=== PATIENT | male | born 1950 | race Two or more races ===

== ENCOUNTER 2022-11-27 12:35 | Inpatient (IN) | payer OTHER ==
[2022-11-27 17:58] LABS: HEMATOCRIT 22.9 % (35.4-49); HEMOGLOBIN 7.1 GM/dL (11.7-16.9); MCH 26.6 pg (25.7-33.7); MCHC 31.1 g/dl (32.0-35.9); MEAN CELL VOLUME 85.6 fl (80-96); PLATELET COUNT 289 10^3/uL (134-434); RBC 2.68 M/mm3 (4.00-5.60); RDW 17.1 % (11.9-15.9); WHITE BLOOD COUNT 15.2 K/mm3 (4.0-10.0)
[2022-11-27 18:09] LABS: EPI CELLS 23 /uL (0-25.1); HYALINE CASTS 5 /uL (0-3.1); URINE APPEARANCE TURBID; URINE BACTERIA >9,000 /uL (0-1359); URINE BILIRUBIN NEGATIVE (NEGATIVE); URINE COLOR YELLOW; URINE GLUCOSE (UA) NEGATIVE (NEGATIVE); URINE KETONE NEGATIVE (NEGATIVE); URINE LEUK ESTERASE 3+ (NEGATIVE); URINE NITRITE NEGATIVE (NEGATIVE); URINE PROTEIN 3+ (NEGATIVE); URINE RBC 695 /uL (0-23.9); URINE UROBILINOGEN 0.2 mg/dL (0.2-1.0); URINE WBC 2874 /uL (0-25.8)
[2022-11-27 18:28] LABS: ALBUMIN 2.6 g/dl (3.4-5.0); CALCIUM 8.1 mg/dL (8.5-10.1); CHLORIDE 111 mmol/L (98-107); SODIUM 143 mmol/L (136-145)
[2022-11-27 18:29] LABS: ANION GAP 14 MMOL/L (8-16); BLOOD UREA NITROGEN 77.8 mg/dL (7-18); CO2 19 mmol/L (21-32); GLUCOSE,RANDOM 56 mg/dL (74-106)
[2022-11-27 18:32] LABS: SGOT/AST 41 U/L (15-37); SGPT/ALT 29 U/L (13-61)
[2022-11-27 18:34] LABS: BILIRUBIN,TOTAL 0.4 mg/dL (0.2-1)
[2022-11-27 18:35] LABS: ALK PHOS 62 U/L (45-117)
[2022-11-27] MEDS ORDERED: VANCOMYCIN 1 GM in D5W (PRE-DOCKED) 1,000 MG/250 ML IVPB ONE (18:39)
[2022-11-27] MEDS ORDERED: CEFTRIAXONE 1,000 MG in DEXTROSE 5%-WATER - 50 ML IVPB ONE (18:39)
[2022-11-27 18:48] LABS: CREATININE 9.6 mg/dL (0.55-1.3)
[2022-11-27] MEDS ORDERED: VANCOMYCIN/WATER FOR INJ (PEG) 1,000 MG/200 ML BAG IVPB ONE (19:00)
[2022-11-27] MEDS ORDERED: CEFTRIAXONE 1 GM/50 ML BAG ONE (19:01)
[2022-11-27 21:26] LABS: ANISOCYTOSIS 1+; MACROCYTOSIS 1+
[2022-11-27] MEDS ORDERED: predniSONE 20 MG TABLET (UD) ONE (22:31)
[2022-11-27] MEDS: INSULIN SLIDING SCALE (NOVOLOG) 1 VIAL SQ SCH (22:44)
[2022-11-27] MEDS: predniSONE 20 MG TABLET (UD) PO SCH (22:44)
[2022-11-27] MEDS: BETAMETHASONE DIPR 0.05% CREAM 15 GM TUBE TP SCH (22:44)
[2022-11-28] MEDS ORDERED: diphenhydrAMINE HCL 25 MG CAPSULE (FP) PO ONE (04:33)
[2022-11-28] MEDS: INSULIN SLIDING SCALE (NOVOLOG) 1 VIAL SQ SCH ×3 (06:09→16:42)
[2022-11-28] MEDS ORDERED: LEVOTHYROXINE NA 125 MCG TABLET (FP) PO SCH (07:00)
[2022-11-28] MEDS ORDERED: TAMSULOSIN HCL 0.4 MG CAP PO SCH (08:30)
[2022-11-28] MEDS: predniSONE 20 MG TABLET (UD) PO SCH (09:45)
[2022-11-28] MEDS ORDERED: PETROLATUM, WHITE 30 GM TUBE TP SCH (10:00)
[2022-11-28] MEDS ORDERED: CEFTRIAXONE 1 GM in DEXTROSE 5%-WATER - 50 ML IVPB SCH (10:00)
[2022-11-28] MEDS ORDERED: COLLOIDAL OATMEAL 1 EACH PACKET TP SCH ×2 (10:00→12:38)
[2022-11-28] MEDS: BETAMETHASONE DIPR 0.05% CREAM 15 GM TUBE TP SCH (10:01)
[2022-11-28 11:37] LABS: HEMATOCRIT 22.2 % (35.4-49); MCH 26.3 pg (25.7-33.7); MCHC 30.6 g/dl (32.0-35.9); MEAN CELL VOLUME 85.7 fl (80-96); PLATELET COUNT 270 10^3/uL (134-434); RBC 2.58 M/mm3 (4.00-5.60); RDW 16.9 % (11.9-15.9); WHITE BLOOD COUNT 12.5 K/mm3 (4.0-10.0)
[2022-11-28 11:42] LABS: INR 1.03 (0.83-1.09); PROTHROMBIN TIME (PATIENT) 11.9 SEC (9.7-13.0)
[2022-11-28 12:01] LABS: CHLORIDE 110 mmol/L (98-107); SODIUM 143 mmol/L (136-145)
[2022-11-28 12:02] LABS: HEMOGLOBIN 6.8 GM/dL (11.7-16.9)
[2022-11-28 12:09] LABS: ALBUMIN 2.3 g/dl (3.4-5.0); ANION GAP 15 MMOL/L (8-16); BLOOD UREA NITROGEN 79.6 mg/dL (7-18); CALCIUM 8.2 mg/dL (8.5-10.1); CO2 17 mmol/L (21-32); GLUCOSE,RANDOM 180 mg/dL (74-106); MAGNESIUM 2.7 mg/dL (1.8-2.4)
[2022-11-28 12:13] LABS: PHOSPHOROUS 8.7 mg/dL (2.5-4.9); SGOT/AST 35 U/L (15-37); SGPT/ALT 30 U/L (13-61)
[2022-11-28 12:14] LABS: TOT PROT 5.7 g/dl (6.4-8.2)
[2022-11-28 12:15] LABS: ALK PHOS 61 U/L (45-117); BILIRUBIN,TOTAL 0.4 mg/dL (0.2-1); CREATININE 9.9 mg/dL (0.55-1.3)
[2022-11-28 13:13] LABS: ANISOCYTOSIS 0; MACROCYTOSIS 0
[2022-11-28] MEDS ORDERED: AMMONIUM LACTATE 12% LOTION 225 GM BOTTLE TP PRN (14:56)
[2022-11-28] MEDS: METOPROLOL TARTRATE 25 MG TABLET (FP) PO SCH (21:55)
[2022-11-28] MEDS ORDERED: BETAMETHASONE DIPR 0.05% CREAM 15 GM TUBE TP SCH (22:00)
[2022-11-28] MEDS ORDERED: ATORVASTATIN CA 20 MG TABLET (FP) PO SCH ×2 (22:00)
[2022-11-28] MEDS: COLLOIDAL OATMEAL 1 EACH PACKET TP SCH (23:00)
[2022-11-28] MEDS: BETAMETHASONE DIPR 0.05% OINTMENT 15 GM TUBE TP SCH (23:01)
[2022-11-29] MEDS: INSULIN SLIDING SCALE (NOVOLOG) 1 VIAL SQ SCH ×5 (00:10→22:26)
[2022-11-29] MEDS: LEVOTHYROXINE NA 125 MCG TABLET (FP) PO SCH (06:19)
[2022-11-29 08:30] LABS: BASO % 0.2 % (0-2.0); EOS % 0.3 % (0-4.5); HEMATOCRIT 26.7 % (35.4-49); HEMOGLOBIN 8.3 GM/dL (11.7-16.9); LYMPH % 4.2 % (8-40); MCH 26.6 pg (25.7-33.7); MCHC 30.9 g/dl (32.0-35.9); MEAN CELL VOLUME 86.1 fl (80-96); MONO % 7.4 % (3.8-10.2); NEUT % 87.9 % (42.8-82.8); PLATELET COUNT 321 10^3/uL (134-434); RDW 16.7 % (11.9-15.9); WHITE BLOOD COUNT 19.1 K/mm3 (4.0-10.0)
[2022-11-29 08:59] LABS: CHLORIDE 111 mmol/L (98-107); SODIUM 145 mmol/L (136-145)
[2022-11-29] MEDS: TAMSULOSIN HCL 0.4 MG CAP PO SCH (09:02)
[2022-11-29 09:04] LABS: ALBUMIN 2.8 g/dl (3.4-5.0); ANION GAP 16 MMOL/L (8-16); CALCIUM 8.6 mg/dL (8.5-10.1); CO2 18 mmol/L (21-32); GLUCOSE,RANDOM 115 mg/dL (74-106); MAGNESIUM 2.8 mg/dL (1.8-2.4)
[2022-11-29 09:06] LABS: SGOT/AST 26 U/L (15-37); SGPT/ALT 31 U/L (13-61)
[2022-11-29] MEDS: BETAMETHASONE DIPR 0.05% OINTMENT 15 GM TUBE TP SCH ×2 (09:06→22:06)
[2022-11-29] MEDS: PETROLATUM, WHITE 30 GM TUBE TP SCH (09:08)
[2022-11-29 09:09] LABS: ALK PHOS 79 U/L (45-117); BILIRUBIN,TOTAL 0.9 mg/dL (0.2-1); TOT PROT 6.8 g/dl (6.4-8.2)
[2022-11-29 09:12] LABS: CREATININE 9.9 mg/dL (0.55-1.3)
[2022-11-29] MEDS: predniSONE 20 MG TABLET (UD) PO SCH (09:34)
[2022-11-29] MEDS: METOPROLOL TARTRATE 25 MG TABLET (FP) PO SCH ×2 (09:34→22:11)
[2022-11-29 09:39] LABS: PHOSPHOROUS 8.5 mg/dL (2.5-4.9)
[2022-11-29] MEDS ORDERED: CEFTRIAXONE 1 GM in DEXTROSE 5%-WATER - 50 ML IVPB SCH (10:00)
[2022-11-29] MEDS ORDERED: PIPERACILLIN/TAZOB 2.25 GM 2.25 GM in DEXTROSE 5%-WATER - 50 ML IVPB SCH ×2 (14:30→18:00)
[2022-11-29] MEDS ORDERED: ALPRAZolam 0.25 MG TABLET PO ONE (14:35)
[2022-11-29] MEDS ORDERED: LIDOCAINE HCL 1%, 10 MG/ML (20ML VIAL) ONE (16:04)
[2022-11-29] MEDS: MEROPENEM 500 MG in DEXTROSE 5%-WATER 100 ML IVPB SCH (16:42)
[2022-11-29] MEDS: COLLOIDAL OATMEAL 1 EACH PACKET TP SCH (22:05)
[2022-11-29] MEDS: DOXYCYCLINE HYCLATE 100 MG CAPSULE PO SCH (22:11)
[2022-11-30] MEDS: LEVOTHYROXINE NA 125 MCG TABLET (FP) PO SCH (06:16)
[2022-11-30] MEDS: INSULIN SLIDING SCALE (NOVOLOG) 1 VIAL SQ SCH ×4 (06:18→21:51)
[2022-11-30 07:46] LABS: HEMATOCRIT 23.6 % (35.4-49); HEMOGLOBIN 7.2 GM/dL (11.7-16.9); MCH 26.1 pg (25.7-33.7); MCHC 30.6 g/dl (32.0-35.9); MEAN CELL VOLUME 85.2 fl (80-96); MEAN PLT VOLUME 8.6 fl (7.5-11.1); PLATELET COUNT 248 10^3/uL (134-434); RBC 2.77 M/mm3 (4.00-5.60); WHITE BLOOD COUNT 13.8 K/mm3 (4.0-10.0)
[2022-11-30 07:56] LABS: CHLORIDE 109 mmol/L (98-107); SODIUM 143 mmol/L (136-145)
[2022-11-30 08:05] LABS: CALCIUM 7.8 mg/dL (8.5-10.1)
[2022-11-30 08:07] LABS: ALBUMIN 2.6 g/dl (3.4-5.0); ANION GAP 10 MMOL/L (8-16); BLOOD UREA NITROGEN 82.2 mg/dL (7-18); CO2 24 mmol/L (21-32); GLUCOSE,RANDOM 142 mg/dL (74-106); MAGNESIUM 2.5 mg/dL (1.8-2.4)
[2022-11-30 08:09] LABS: SGOT/AST 20 U/L (15-37); SGPT/ALT 29 U/L (13-61)
[2022-11-30 08:11] LABS: BILIRUBIN,TOTAL 0.5 mg/dL (0.2-1); TOT PROT 6.1 g/dl (6.4-8.2)
[2022-11-30 08:13] LABS: ALK PHOS 65 U/L (45-117)
[2022-11-30 08:18] LABS: CREATININE 7.9 mg/dL (0.55-1.3)
[2022-11-30] MEDS: TAMSULOSIN HCL 0.4 MG CAP PO SCH (08:42)
[2022-11-30] MEDS: METOPROLOL TARTRATE 25 MG TABLET (FP) PO SCH ×2 (11:25→21:41)
[2022-11-30] MEDS: predniSONE 20 MG TABLET (UD) PO SCH (11:26)
[2022-11-30] MEDS: DOXYCYCLINE HYCLATE 100 MG CAPSULE PO SCH ×2 (11:26→18:52)
[2022-11-30] MEDS: BETAMETHASONE DIPR 0.05% OINTMENT 15 GM TUBE TP SCH ×2 (11:26→21:41)
[2022-11-30] MEDS: PETROLATUM, WHITE 30 GM TUBE TP SCH (11:49)
[2022-11-30] MEDS: MEROPENEM 500 MG in DEXTROSE 5%-WATER 100 ML IVPB SCH (18:51)
[2022-11-30] MEDS: FINASTERIDE 5 MG TABLET (FP) PO SCH (18:52)
[2022-11-30] MEDS: CLOTRIMAZOLE 1% CREAM TP SCH (18:52)
[2022-12-01] MEDS: INSULIN SLIDING SCALE (NOVOLOG) 1 VIAL SQ SCH ×4 (06:51→22:01)
[2022-12-01] MEDS: COLLOIDAL OATMEAL 1 EACH PACKET TP SCH ×2 (06:51→21:58)
[2022-12-01] MEDS: LEVOTHYROXINE NA 125 MCG TABLET (FP) PO SCH (06:52)
[2022-12-01 08:23] LABS: HEMATOCRIT 23.1 % (35.4-49); HEMOGLOBIN 7.4 GM/dL (11.7-16.9); MCH 27.1 pg (25.7-33.7); MEAN CELL VOLUME 84.9 fl (80-96); MEAN PLT VOLUME 8.8 fl (7.5-11.1); PLATELET COUNT 265 10^3/uL (134-434); RBC 2.73 M/mm3 (4.00-5.60); RDW 16.1 % (11.9-15.9); WHITE BLOOD COUNT 11.5 K/mm3 (4.0-10.0)
[2022-12-01 09:00] LABS: CALCIUM 7.8 mg/dL (8.5-10.1)
[2022-12-01 09:01] LABS: BLOOD UREA NITROGEN 62.2 mg/dL (7-18); MAGNESIUM 2.1 mg/dL (1.8-2.4)
[2022-12-01 09:04] LABS: CREATININE 5.6 mg/dL (0.55-1.3); PHOSPHOROUS 5.1 mg/dL (2.5-4.9)
[2022-12-01] MEDS: TAMSULOSIN HCL 0.4 MG CAP PO SCH (09:13)
[2022-12-01] MEDS: DOXYCYCLINE HYCLATE 100 MG CAPSULE PO SCH ×2 (10:21→17:24)
[2022-12-01] MEDS: FINASTERIDE 5 MG TABLET (FP) PO SCH (10:21)
[2022-12-01] MEDS: METOPROLOL TARTRATE 25 MG TABLET (FP) PO SCH ×2 (10:21→22:00)
[2022-12-01] MEDS: predniSONE 20 MG TABLET (UD) PO SCH (10:21)
[2022-12-01] MEDS: CLOTRIMAZOLE 1% CREAM TP SCH (10:24)
[2022-12-01] MEDS: PETROLATUM, WHITE 30 GM TUBE TP SCH (10:24)
[2022-12-01] MEDS: BETAMETHASONE DIPR 0.05% OINTMENT 15 GM TUBE TP SCH ×2 (10:24→21:59)
[2022-12-01] MEDS: MEROPENEM 500 MG in DEXTROSE 5%-WATER 100 ML IVPB SCH (15:41)
[2022-12-02] MEDS: INSULIN SLIDING SCALE (NOVOLOG) 1 VIAL SQ SCH ×4 (06:01→21:31)
[2022-12-02] MEDS: LEVOTHYROXINE NA 125 MCG TABLET (FP) PO SCH (06:02)
[2022-12-02 08:22] LABS: HEMATOCRIT 23.6 % (35.4-49); HEMOGLOBIN 7.4 GM/dL (11.7-16.9); MCH 26.8 pg (25.7-33.7); MCHC 31.4 g/dl (32.0-35.9); MEAN CELL VOLUME 85.3 fl (80-96); PLATELET COUNT 242 10^3/uL (134-434); RBC 2.77 M/mm3 (4.00-5.60); RDW 16.4 % (11.9-15.9); WHITE BLOOD COUNT 12.5 K/mm3 (4.0-10.0)
[2022-12-02 08:31] LABS: ALBUMIN 2.4 g/dl (3.4-5.0); CALCIUM 7.6 mg/dL (8.5-10.1)
[2022-12-02 08:32] LABS: BLOOD UREA NITROGEN 81.5 mg/dL (7-18)
[2022-12-02 08:34] LABS: CREATININE 6.9 mg/dL (0.55-1.3)
[2022-12-02 08:36] LABS: BILIRUBIN,TOTAL 0.4 mg/dL (0.2-1); TOT PROT 5.9 g/dl (6.4-8.2)
[2022-12-02] MEDS: TAMSULOSIN HCL 0.4 MG CAP PO SCH (08:39)
[2022-12-02] MEDS: METOPROLOL TARTRATE 25 MG TABLET (FP) PO SCH ×2 (09:04→21:30)
[2022-12-02] MEDS: FINASTERIDE 5 MG TABLET (FP) PO SCH (09:04)
[2022-12-02] MEDS: DOXYCYCLINE HYCLATE 100 MG CAPSULE PO SCH ×2 (09:04→17:28)
[2022-12-02] MEDS: predniSONE 20 MG TABLET (UD) PO SCH (09:04)
[2022-12-02] MEDS: BETAMETHASONE DIPR 0.05% OINTMENT 15 GM TUBE TP SCH ×3 (09:53→21:30)
[2022-12-02] MEDS: PETROLATUM, WHITE 30 GM TUBE TP SCH ×2 (09:53→10:00)
[2022-12-02] MEDS: CLOTRIMAZOLE 1% CREAM TP SCH (09:53)
[2022-12-02 10:08] LABS: ANISOCYTOSIS 0; HELMET CELLS 0; HOWELL-JOLLY BODIES 0; MACROCYTOSIS 0; OVALOCYTE 0; ROULEAU 0; SICKELED CELLS 0; TARGET CELLS 0; TEAR DROP CELLS 0; TOXIC GRANULATION 0
[2022-12-02] MEDS: MEROPENEM 500 MG in DEXTROSE 5%-WATER 100 ML IVPB SCH (14:30)
[2022-12-02] MEDS: COLLOIDAL OATMEAL 1 EACH PACKET TP SCH (21:29)
[2022-12-03] MEDS: INSULIN SLIDING SCALE (NOVOLOG) 1 VIAL SQ SCH ×4 (06:24→22:10)
[2022-12-03] MEDS: LEVOTHYROXINE NA 125 MCG TABLET (FP) PO SCH (06:24)
[2022-12-03 09:59] LABS: HEMATOCRIT 25.7 % (35.4-49); HEMOGLOBIN 7.9 GM/dL (11.7-16.9); MCH 26.6 pg (25.7-33.7); MCHC 30.7 g/dl (32.0-35.9); MEAN CELL VOLUME 86.6 fl (80-96); MEAN PLT VOLUME 8.6 fl (7.5-11.1); PLATELET COUNT 288 10^3/uL (134-434); RBC 2.97 M/mm3 (4.00-5.60); RDW 16.7 % (11.9-15.9); WHITE BLOOD COUNT 16.2 K/mm3 (4.0-10.0)
[2022-12-03] MEDS: METOPROLOL TARTRATE 25 MG TABLET (FP) PO SCH ×2 (10:06→22:00)
[2022-12-03] MEDS: CLOTRIMAZOLE 1% CREAM TP SCH (10:06)
[2022-12-03] MEDS: DOXYCYCLINE HYCLATE 100 MG CAPSULE PO SCH ×2 (10:06→20:05)
[2022-12-03] MEDS: TAMSULOSIN HCL 0.4 MG CAP PO SCH (10:06)
[2022-12-03] MEDS: BETAMETHASONE DIPR 0.05% OINTMENT 15 GM TUBE TP SCH ×2 (10:06→22:07)
[2022-12-03] MEDS: PETROLATUM, WHITE 30 GM TUBE TP SCH (10:06)
[2022-12-03] MEDS: FINASTERIDE 5 MG TABLET (FP) PO SCH (10:06)
[2022-12-03] MEDS: predniSONE 20 MG TABLET (UD) PO SCH (10:06)
[2022-12-03 10:12] LABS: CALCIUM 8.1 mg/dL (8.5-10.1)
[2022-12-03 10:13] LABS: ALBUMIN 2.8 g/dl (3.4-5.0); BLOOD UREA NITROGEN 101.8 mg/dL (7-18); CO2 23 mmol/L (21-32); GLUCOSE,RANDOM 165 mg/dL (74-106); MAGNESIUM 2.2 mg/dL (1.8-2.4)
[2022-12-03 10:15] LABS: SGPT/ALT 31 U/L (13-61)
[2022-12-03 10:16] LABS: PHOSPHOROUS 7.1 mg/dL (2.5-4.9); SGOT/AST 17 U/L (15-37)
[2022-12-03 10:17] LABS: BILIRUBIN,TOTAL 0.5 mg/dL (0.2-1); TOT PROT 6.6 g/dl (6.4-8.2)
[2022-12-03 10:18] LABS: ALK PHOS 59 U/L (45-117)
[2022-12-03 10:19] LABS: ANION GAP 18 MMOL/L (8-16); CHLORIDE 104 mmol/L (98-107); CREATININE 7.6 mg/dL (0.55-1.3); SODIUM 145 mmol/L (136-145)
[2022-12-03] MEDS ORDERED: ALBUTEROL SO4 0.5 % INH SOLN 2.5 MG/0.5 ML VIAL.NEB. NEB PRN (10:30)
[2022-12-03] MEDS: MEROPENEM 500 MG in DEXTROSE 5%-WATER 100 ML IVPB SCH (15:10)
[2022-12-03] MEDS: COLLOIDAL OATMEAL 1 EACH PACKET TP SCH (22:01)
[2022-12-04 03:06] LABS: FIBROSIS SCORE. 0.07 (0.00-0.21); HCV ALPHA 2 MACRO CHART 148 mg/dL (110-276); NECROINFLAM. ACTIVITY GRADE A0-No activity (.)
[2022-12-04] MEDS: INSULIN SLIDING SCALE (NOVOLOG) 1 VIAL SQ SCH ×4 (06:42→22:03)
[2022-12-04] MEDS: LEVOTHYROXINE NA 125 MCG TABLET (FP) PO SCH (06:43)
[2022-12-04] MEDS: METOPROLOL TARTRATE 25 MG TABLET (FP) PO SCH ×2 (09:52→21:43)
[2022-12-04] MEDS: FINASTERIDE 5 MG TABLET (FP) PO SCH (09:52)
[2022-12-04] MEDS: TAMSULOSIN HCL 0.4 MG CAP PO SCH (09:52)
[2022-12-04] MEDS: DOXYCYCLINE HYCLATE 100 MG CAPSULE PO SCH ×2 (09:52→17:13)
[2022-12-04] MEDS: predniSONE 20 MG TABLET (UD) PO SCH (09:52)
[2022-12-04] MEDS: BETAMETHASONE DIPR 0.05% OINTMENT 15 GM TUBE TP SCH ×2 (10:07→21:43)
[2022-12-04] MEDS: CLOTRIMAZOLE 1% CREAM TP SCH (10:07)
[2022-12-04] MEDS: PETROLATUM, WHITE 30 GM TUBE TP SCH (10:08)
[2022-12-04] MEDS: MEROPENEM 500 MG in DEXTROSE 5%-WATER 100 ML IVPB SCH (14:43)
[2022-12-04] MEDS: COLLOIDAL OATMEAL 1 EACH PACKET TP SCH (21:43)
[2022-12-05] MEDS: INSULIN SLIDING SCALE (NOVOLOG) 1 VIAL SQ SCH ×4 (06:16→21:58)
[2022-12-05] MEDS: LEVOTHYROXINE NA 125 MCG TABLET (FP) PO SCH (06:17)
[2022-12-05 08:31] LABS: HEMATOCRIT 23.1 % (35.4-49); HEMOGLOBIN 7.3 GM/dL (11.7-16.9); MCH 27.1 pg (25.7-33.7); MCHC 31.5 g/dl (32.0-35.9); MEAN CELL VOLUME 85.9 fl (80-96); MEAN PLT VOLUME 8.8 fl (7.5-11.1); PLATELET COUNT 237 10^3/uL (134-434); RBC 2.69 M/mm3 (4.00-5.60); RDW 16.2 % (11.9-15.9); WHITE BLOOD COUNT 13.8 K/mm3 (4.0-10.0)
[2022-12-05 08:42] LABS: ALBUMIN 2.6 g/dl (3.4-5.0); BLOOD UREA NITROGEN 79.1 mg/dL (7-18); CALCIUM 7.9 mg/dL (8.5-10.1); MAGNESIUM 2.1 mg/dL (1.8-2.4)
[2022-12-05 08:45] LABS: PHOSPHOROUS 6.7 mg/dL (2.5-4.9)
[2022-12-05 08:46] LABS: CREATININE 5.8 mg/dL (0.55-1.3)
[2022-12-05 08:47] LABS: BILIRUBIN,TOTAL 0.5 mg/dL (0.2-1); TOT PROT 5.8 g/dl (6.4-8.2)
[2022-12-05] MEDS ORDERED: amLODIPine BESYLATE 5 MG TABLET (FP) PO SCH (10:00)
[2022-12-05] MEDS: BETAMETHASONE DIPR 0.05% OINTMENT 15 GM TUBE TP SCH ×2 (10:52→21:54)
[2022-12-05] MEDS: PETROLATUM, WHITE 30 GM TUBE TP SCH (10:53)
[2022-12-05] MEDS: METOPROLOL TARTRATE 25 MG TABLET (FP) PO SCH ×3 (11:06→21:54)
[2022-12-05] MEDS: TAMSULOSIN HCL 0.4 MG CAP PO SCH ×2 (11:06→16:47)
[2022-12-05] MEDS: predniSONE 20 MG TABLET (UD) PO SCH ×2 (11:06→16:46)
[2022-12-05] MEDS: CLOTRIMAZOLE 1% CREAM TP SCH (11:07)
[2022-12-05] MEDS: FINASTERIDE 5 MG TABLET (FP) PO SCH ×2 (11:07→16:47)
[2022-12-05] MEDS: DOXYCYCLINE HYCLATE 100 MG CAPSULE PO SCH ×2 (11:07→17:48)
[2022-12-05] MEDS ORDERED: EPOETIN ALFA-EPBX 4,000 UNIT/ML VIAL IVPUSH ONE (13:00)
[2022-12-05] MEDS: MEROPENEM 500 MG in DEXTROSE 5%-WATER 100 ML IVPB SCH (16:40)
[2022-12-05] MEDS: COLLOIDAL OATMEAL 1 EACH PACKET TP SCH (21:54)
[2022-12-06] MEDS: INSULIN SLIDING SCALE (NOVOLOG) 1 VIAL SQ SCH ×3 (06:23→22:10)
[2022-12-06] MEDS: LEVOTHYROXINE NA 125 MCG TABLET (FP) PO SCH (06:52)
[2022-12-06 07:19] LABS: HEMATOCRIT 21.9 % (35.4-49); HEMOGLOBIN 7.2 GM/dL (11.7-16.9); MCHC 32.7 g/dl (32.0-35.9); MEAN CELL VOLUME 85.8 fl (80-96); MEAN PLT VOLUME 9.4 fl (7.5-11.1); PLATELET COUNT 207 10^3/uL (134-434); RBC 2.56 M/mm3 (4.00-5.60); RDW 16.5 % (11.9-15.9); WHITE BLOOD COUNT 10.4 K/mm3 (4.0-10.0)
[2022-12-06 07:40] LABS: CALCIUM 7.4 mg/dL (8.5-10.1)
[2022-12-06 07:41] LABS: ALBUMIN 2.4 g/dl (3.4-5.0)
[2022-12-06 07:45] LABS: BILIRUBIN,TOTAL 0.4 mg/dL (0.2-1)
[2022-12-06 07:46] LABS: TOT PROT 5.5 g/dl (6.4-8.2)
[2022-12-06 07:49] LABS: BLOOD UREA NITROGEN 50.2 mg/dL (7-18)
[2022-12-06] MEDS: TAMSULOSIN HCL 0.4 MG CAP PO SCH (09:46)
[2022-12-06] MEDS: DOXYCYCLINE HYCLATE 100 MG CAPSULE PO SCH (09:46)
[2022-12-06] MEDS: METOPROLOL TARTRATE 25 MG TABLET (FP) PO SCH ×2 (09:47→22:04)
[2022-12-06] MEDS: FINASTERIDE 5 MG TABLET (FP) PO SCH (09:47)
[2022-12-06] MEDS: predniSONE 20 MG TABLET (UD) PO SCH (09:47)
[2022-12-06] MEDS ORDERED: LOSARTAN POTASSIUM 50 MG TABLET PO SCH (10:00)
[2022-12-06] MEDS: PETROLATUM, WHITE 30 GM TUBE TP SCH (10:06)
[2022-12-06] MEDS: CLOTRIMAZOLE 1% CREAM TP SCH (10:06)
[2022-12-06] MEDS: BETAMETHASONE DIPR 0.05% OINTMENT 15 GM TUBE TP SCH ×2 (10:06→22:03)
[2022-12-06] MEDS ORDERED: LIDOCAINE HCL 1%, 10 MG/ML (20ML VIAL) ONE ×2 (13:18→15:31)
[2022-12-06] MEDS ORDERED: HEPARIN NA (PORCINE) 5,000 UNITS/ML 1ML VIAL ONE (13:19)
[2022-12-06] MEDS ORDERED: FENTANYL CITRATE/PF 50 MCG/ML VIAL ONE ×4 (14:55→17:07)
[2022-12-06] MEDS ORDERED: MIDAZOLAM HCL 2 MG/2 ML SINGLE DOSE VIAL ONE ×2 (14:55→16:36)
[2022-12-06] MEDS ORDERED: PROPOFOL 20 ML ONE ×5 (14:55→18:22)
[2022-12-06] MEDS ORDERED: ceFAZolin SODIUM 1 GM VIAL ONE (15:53)
[2022-12-06] MEDS ORDERED: ceFAZolin SODIUM 1 GM VIAL IVPB ONE (15:54)
[2022-12-06] MEDS ORDERED: LIDOCAINE HCL 1%, 10 MG/ML (20ML VIAL) INF ONE ×2 (16:03)
[2022-12-06] MEDS ORDERED: FENTANYL CITRATE/PF 50 MCG/ML VIAL IVPUSH PRN ×2 (16:51→19:28)
[2022-12-06] MEDS ORDERED: ONDANSETRON 4 MG/2 ML VIAL IVPUSH PRN ×2 (16:51→19:28)
[2022-12-06] MEDS ORDERED: MEROPENEM 500 MG in DEXTROSE 5%-WATER 100 ML IVPB SCH (17:00)
[2022-12-06] MEDS ORDERED: AMMONIUM LACTATE 12% LOTION 225 GM BOTTLE TP PRN (19:28)
[2022-12-06] MEDS ORDERED: ALBUTEROL SO4 0.5 % INH SOLN 2.5 MG/0.5 ML VIAL.NEB. NEB PRN (19:28)
[2022-12-06] MEDS: COLLOIDAL OATMEAL 1 EACH PACKET TP SCH (22:03)
[2022-12-07] MEDS: LEVOTHYROXINE NA 125 MCG TABLET (FP) PO SCH (06:36)
[2022-12-07] MEDS: INSULIN SLIDING SCALE (NOVOLOG) 1 VIAL SQ SCH ×4 (06:36→22:37)
[2022-12-07 08:00] LABS: BASO % 0.2 % (0-2.0); EOS % 1.1 % (0-4.5); HEMATOCRIT 24.2 % (35.4-49); HEMOGLOBIN 7.6 GM/dL (11.7-16.9); LYMPH % 7.3 % (8-40); MCH 26.9 pg (25.7-33.7); MCHC 31.3 g/dl (32.0-35.9); MEAN CELL VOLUME 85.8 fl (80-96); MEAN PLT VOLUME 9.3 fl (7.5-11.1); MONO % 8.9 % (3.8-10.2); NEUT % 82.5 % (42.8-82.8); PLATELET COUNT 218 10^3/uL (134-434); RBC 2.83 M/mm3 (4.00-5.60); RDW 16.5 % (11.9-15.9); WHITE BLOOD COUNT 13.6 K/mm3 (4.0-10.0)
[2022-12-07 08:31] LABS: CREATININE 5.1 mg/dL (0.55-1.3); PHOSPHOROUS 7.5 mg/dL (2.5-4.9)
[2022-12-07 08:40] LABS: BLOOD UREA NITROGEN 66.7 mg/dL (7-18); CALCIUM 7.6 mg/dL (8.5-10.1); MAGNESIUM 1.9 mg/dL (1.8-2.4)
[2022-12-07 08:41] LABS: ALBUMIN 2.6 g/dl (3.4-5.0)
[2022-12-07 08:47] LABS: TOT PROT 5.8 g/dl (6.4-8.2)
[2022-12-07 09:37] LABS: BILIRUBIN,TOTAL 0.5 mg/dL (0.2-1)
[2022-12-07] MEDS: predniSONE 20 MG TABLET (UD) PO SCH (09:45)
[2022-12-07] MEDS: TAMSULOSIN HCL 0.4 MG CAP PO SCH (09:45)
[2022-12-07] MEDS: DOXYCYCLINE HYCLATE 100 MG CAPSULE PO SCH ×2 (09:45→17:18)
[2022-12-07] MEDS: METOPROLOL TARTRATE 25 MG TABLET (FP) PO SCH ×2 (09:45→22:31)
[2022-12-07] MEDS: FINASTERIDE 5 MG TABLET (FP) PO SCH (09:45)
[2022-12-07] MEDS: LOSARTAN POTASSIUM 50 MG TABLET PO SCH (09:46)
[2022-12-07] MEDS: CLOTRIMAZOLE 1% CREAM TP SCH (09:47)
[2022-12-07] MEDS: BETAMETHASONE DIPR 0.05% OINTMENT 15 GM TUBE TP SCH ×2 (09:48→22:31)
[2022-12-07] MEDS: PETROLATUM, WHITE 30 GM TUBE TP SCH (11:37)
[2022-12-07] MEDS: MEROPENEM 500 MG in DEXTROSE 5%-WATER 100 ML IVPB SCH (16:08)
[2022-12-07] MEDS: COLLOIDAL OATMEAL 1 EACH PACKET TP SCH (22:37)
[2022-12-08] MEDS: INSULIN SLIDING SCALE (NOVOLOG) 1 VIAL SQ SCH ×4 (06:58→22:40)
[2022-12-08] MEDS: LEVOTHYROXINE NA 125 MCG TABLET (FP) PO SCH (06:59)
[2022-12-08 07:58] LABS: HEMATOCRIT 23.5 % (35.4-49); HEMOGLOBIN 7.3 GM/dL (11.7-16.9); MCH 26.8 pg (25.7-33.7); MCHC 31.1 g/dl (32.0-35.9); MEAN CELL VOLUME 86.2 fl (80-96); MEAN PLT VOLUME 9.7 fl (7.5-11.1); PLATELET COUNT 188 10^3/uL (134-434); RBC 2.72 M/mm3 (4.00-5.60); RDW 16.4 % (11.9-15.9); WHITE BLOOD COUNT 11.8 K/mm3 (4.0-10.0)
[2022-12-08 08:32] LABS: ALBUMIN 2.4 g/dl (3.4-5.0); CALCIUM 7.4 mg/dL (8.5-10.1); CREATININE 4.5 mg/dL (0.55-1.3); PHOSPHOROUS 5.3 mg/dL (2.5-4.9)
[2022-12-08 08:33] LABS: BILIRUBIN,TOTAL 0.4 mg/dL (0.2-1); BLOOD UREA NITROGEN 51.6 mg/dL (7-18); MAGNESIUM 1.9 mg/dL (1.8-2.4); TOT PROT 5.4 g/dl (6.4-8.2)
[2022-12-08] MEDS: METOPROLOL TARTRATE 25 MG TABLET (FP) PO SCH ×2 (10:15→22:37)
[2022-12-08] MEDS: FINASTERIDE 5 MG TABLET (FP) PO SCH (10:15)
[2022-12-08] MEDS: predniSONE 20 MG TABLET (UD) PO SCH (10:15)
[2022-12-08] MEDS: LOSARTAN POTASSIUM 50 MG TABLET PO SCH (10:16)
[2022-12-08] MEDS: BETAMETHASONE DIPR 0.05% OINTMENT 15 GM TUBE TP SCH ×2 (10:16→22:36)
[2022-12-08] MEDS: CLOTRIMAZOLE 1% CREAM TP SCH (10:16)
[2022-12-08] MEDS: TAMSULOSIN HCL 0.4 MG CAP PO SCH (10:17)
[2022-12-08] MEDS: DOXYCYCLINE HYCLATE 100 MG CAPSULE PO SCH ×2 (10:17→17:31)
[2022-12-08] MEDS: PETROLATUM, WHITE 30 GM TUBE TP SCH (10:17)
[2022-12-08] MEDS: MEROPENEM 500 MG in DEXTROSE 5%-WATER 100 ML IVPB SCH (17:31)
[2022-12-08] MEDS: COLLOIDAL OATMEAL 1 EACH PACKET TP SCH (22:36)
[2022-12-09] MEDS: INSULIN SLIDING SCALE (NOVOLOG) 1 VIAL SQ SCH ×4 (06:43→22:21)
[2022-12-09] MEDS: LEVOTHYROXINE NA 125 MCG TABLET (FP) PO SCH (06:43)
[2022-12-09 10:08] LABS: HEMATOCRIT 23.1 % (35.4-49); HEMOGLOBIN 7.3 GM/dL (11.7-16.9); MCH 27.4 pg (25.7-33.7); MCHC 31.7 g/dl (32.0-35.9); MEAN CELL VOLUME 86.4 fl (80-96); MEAN PLT VOLUME 10.3 fl (7.5-11.1); PLATELET COUNT 196 10^3/uL (134-434); RBC 2.68 M/mm3 (4.00-5.60); RDW 16.4 % (11.9-15.9); WHITE BLOOD COUNT 13.4 K/mm3 (4.0-10.0)
[2022-12-09] MEDS: DOXYCYCLINE HYCLATE 100 MG CAPSULE PO SCH ×2 (10:19→17:44)
[2022-12-09] MEDS: FINASTERIDE 5 MG TABLET (FP) PO SCH (10:19)
[2022-12-09] MEDS: predniSONE 20 MG TABLET (UD) PO SCH (10:19)
[2022-12-09] MEDS: TAMSULOSIN HCL 0.4 MG CAP PO SCH (10:19)
[2022-12-09] MEDS: METOPROLOL TARTRATE 25 MG TABLET (FP) PO SCH ×2 (10:19→23:00)
[2022-12-09] MEDS: CLOTRIMAZOLE 1% CREAM TP SCH (10:20)
[2022-12-09] MEDS: LOSARTAN POTASSIUM 50 MG TABLET PO SCH (10:20)
[2022-12-09] MEDS: BETAMETHASONE DIPR 0.05% OINTMENT 15 GM TUBE TP SCH ×2 (10:20→22:03)
[2022-12-09 10:33] LABS: CALCIUM 7.1 mg/dL (8.5-10.1)
[2022-12-09 10:34] LABS: ALBUMIN 2.4 g/dl (3.4-5.0)
[2022-12-09 10:36] LABS: CREATININE 6.2 mg/dL (0.55-1.3)
[2022-12-09 10:37] LABS: BILIRUBIN,TOTAL 0.5 mg/dL (0.2-1); PHOSPHOROUS 7.3 mg/dL (2.5-4.9)
[2022-12-09 10:38] LABS: TOT PROT 5.6 g/dl (6.4-8.2)
[2022-12-09] MEDS: PETROLATUM, WHITE 30 GM TUBE TP SCH (10:38)
[2022-12-09 10:42] LABS: BLOOD UREA NITROGEN 80.2 mg/dL (7-18)
[2022-12-09 17:28] LABS: EPI CELLS >36 /uL (0-25.1); HYALINE CASTS 1 /uL (0-3.1); URINE APPEARANCE CLOUDY; URINE BACTERIA 12 /uL (0-1359); URINE BILIRUBIN NEGATIVE (NEGATIVE); URINE COLOR YELLOW; URINE GLUCOSE (UA) TRACE (NEGATIVE); URINE KETONE NEGATIVE (NEGATIVE); URINE LEUK ESTERASE 1+ (NEGATIVE); URINE NITRITE NEGATIVE (NEGATIVE); URINE PROTEIN 4+ (NEGATIVE); URINE RBC 54 /uL (0-23.9); URINE UROBILINOGEN 0.2 mg/dL (0.2-1.0); URINE WBC 226 /uL (0-25.8)
[2022-12-09] MEDS ORDERED: INSULIN (NOVOLOG) ASPART 100 UNITS/ML 10ML VIAL ONE (17:45)
[2022-12-09] MEDS: COLLOIDAL OATMEAL 1 EACH PACKET TP SCH (22:02)
[2022-12-09] MEDS: DICLOXACILLIN SODIUM 250 MG CAPSULE PO SCH (22:05)
[2022-12-10] MEDS: LEVOTHYROXINE NA 125 MCG TABLET (FP) PO SCH (06:35)
[2022-12-10] MEDS: INSULIN SLIDING SCALE (NOVOLOG) 1 VIAL SQ SCH ×4 (06:35→22:30)
[2022-12-10 08:34] LABS: HEMATOCRIT 22.5 % (35.4-49); MCH 26.9 pg (25.7-33.7); MEAN CELL VOLUME 86.6 fl (80-96); MEAN PLT VOLUME 10.2 fl (7.5-11.1); PLATELET COUNT 205 10^3/uL (134-434); RDW 16.8 % (11.9-15.9); WHITE BLOOD COUNT 12.7 K/mm3 (4.0-10.0)
[2022-12-10 08:51] LABS: CALCIUM 7.5 mg/dL (8.5-10.1)
[2022-12-10 08:52] LABS: ALBUMIN 2.7 g/dl (3.4-5.0); BLOOD UREA NITROGEN 88.9 mg/dL (7-18)
[2022-12-10 08:55] LABS: CREATININE 6.6 mg/dL (0.55-1.3); PHOSPHOROUS 8.3 mg/dL (2.5-4.9)
[2022-12-10 08:57] LABS: BILIRUBIN,TOTAL 0.5 mg/dL (0.2-1)
[2022-12-10 08:59] LABS: TOT PROT 5.8 g/dl (6.4-8.2)
[2022-12-10] MEDS: DICLOXACILLIN SODIUM 250 MG CAPSULE PO SCH ×2 (10:00→22:22)
[2022-12-10] MEDS: DOXYCYCLINE HYCLATE 100 MG CAPSULE PO SCH ×2 (10:00→18:30)
[2022-12-10] MEDS ORDERED: EPOETIN ALFA-EPBX 4,000 UNIT/ML VIAL IVPUSH ONE (11:00)
[2022-12-10] MEDS: METOPROLOL TARTRATE 25 MG TABLET (FP) PO SCH ×2 (13:39→22:22)
[2022-12-10] MEDS: LOSARTAN POTASSIUM 50 MG TABLET PO SCH (13:39)
[2022-12-10] MEDS: predniSONE 20 MG TABLET (UD) PO SCH (13:39)
[2022-12-10] MEDS: TAMSULOSIN HCL 0.4 MG CAP PO SCH (13:39)
[2022-12-10] MEDS: FINASTERIDE 5 MG TABLET (FP) PO SCH (13:40)
[2022-12-10] MEDS: CLOTRIMAZOLE 1% CREAM TP SCH (13:40)
[2022-12-10] MEDS: PETROLATUM, WHITE 30 GM TUBE TP SCH (13:46)
[2022-12-10] MEDS: BETAMETHASONE DIPR 0.05% OINTMENT 15 GM TUBE TP SCH ×2 (13:46→22:30)
[2022-12-10 15:37] LABS: HEMATOCRIT 22.4 % (35.4-49); HEMOGLOBIN 7.1 GM/dL (11.7-16.9); MCH 27.1 pg (25.7-33.7); MCHC 31.6 g/dl (32.0-35.9); MEAN CELL VOLUME 85.8 fl (80-96); MEAN PLT VOLUME 9.2 fl (7.5-11.1); PLATELET COUNT 163 10^3/uL (134-434); RBC 2.61 M/mm3 (4.00-5.60); RDW 16.6 % (11.9-15.9); WHITE BLOOD COUNT 9.9 K/mm3 (4.0-10.0)
[2022-12-10 21:20] LABS: HEMATOCRIT 24.2 % (35.4-49); HEMOGLOBIN 7.7 GM/dL (11.7-16.9); MCH 27.3 pg (25.7-33.7); MCHC 31.6 g/dl (32.0-35.9); MEAN CELL VOLUME 86.2 fl (80-96); MEAN PLT VOLUME 10.1 fl (7.5-11.1); PLATELET COUNT 172 10^3/uL (134-434); RBC 2.81 M/mm3 (4.00-5.60); RDW 16.6 % (11.9-15.9); WHITE BLOOD COUNT 10.6 K/mm3 (4.0-10.0)
[2022-12-10] MEDS: COLLOIDAL OATMEAL 1 EACH PACKET TP SCH (22:30)
[2022-12-11] MEDS: LEVOTHYROXINE NA 125 MCG TABLET (FP) PO SCH (06:15)
[2022-12-11] MEDS: INSULIN SLIDING SCALE (NOVOLOG) 1 VIAL SQ SCH ×2 (06:15→13:10)
[2022-12-11 07:44] LABS: HEMATOCRIT 22.3 % (35.4-49); HEMOGLOBIN 7.1 GM/dL (11.7-16.9); MCH 27.6 pg (25.7-33.7); MCHC 31.9 g/dl (32.0-35.9); MEAN CELL VOLUME 86.5 fl (80-96); MEAN PLT VOLUME 10.6 fl (7.5-11.1); PLATELET COUNT 161 10^3/uL (134-434); RBC 2.58 M/mm3 (4.00-5.60); RDW 16.6 % (11.9-15.9); WHITE BLOOD COUNT 8.5 K/mm3 (4.0-10.0)
[2022-12-11] MEDS: TAMSULOSIN HCL 0.4 MG CAP PO SCH (08:09)
[2022-12-11 08:12] LABS: ALBUMIN 2.4 g/dl (3.4-5.0); CALCIUM 7.1 mg/dL (8.5-10.1); MAGNESIUM 1.9 mg/dL (1.8-2.4)
[2022-12-11 08:14] LABS: PHOSPHOROUS 6.1 mg/dL (2.5-4.9)
[2022-12-11 08:15] LABS: BILIRUBIN,TOTAL 0.5 mg/dL (0.2-1); CREATININE 4.4 mg/dL (0.55-1.3); TOT PROT 5.4 g/dl (6.4-8.2)
[2022-12-11 08:41] LABS: BLOOD UREA NITROGEN 52.7 mg/dL (7-18)
[2022-12-11] MEDS: predniSONE 20 MG TABLET (UD) PO SCH (09:02)
[2022-12-11] MEDS: FINASTERIDE 5 MG TABLET (FP) PO SCH (09:03)
[2022-12-11] MEDS: LOSARTAN POTASSIUM 50 MG TABLET PO SCH (09:03)
[2022-12-11] MEDS: BETAMETHASONE DIPR 0.05% OINTMENT 15 GM TUBE TP SCH (09:03)
[2022-12-11] MEDS: METOPROLOL TARTRATE 25 MG TABLET (FP) PO SCH (09:03)
[2022-12-11] MEDS: DICLOXACILLIN SODIUM 250 MG CAPSULE PO SCH (09:03)
[2022-12-11] MEDS: PETROLATUM, WHITE 30 GM TUBE TP SCH (09:04)
[2022-12-11] MEDS: DOXYCYCLINE HYCLATE 100 MG CAPSULE PO SCH (09:04)
[2022-12-11] MEDS: CLOTRIMAZOLE 1% CREAM TP SCH (09:04)
[2022-12-11 11:58] VITALS: PULSE 64; RESP 24
[2022-12-11 13:37] VITALS: BMI 38.4
[2022-12-11 16:05] VITALS: BP 147/65; TEMP 98
[2022-12-12] MEDS ORDERED: VITAMIN B COMP W-C 1 EA TABLET (NEPHRO-VITE) PO SCH (10:00)
== END 2022-12-11 16:32 | disposition home or self-care (01) | DRG 981 ==
LOC: JER 12:35 → JERBED 20:19 → J5S 11-28 02:08 → J4W 11-28 17:05
PROVIDERS: ADMIT Internal Medicine; ATTEND Internal Medicine
PROC: 30233N1 Transfusion of Nonautologous Red Blood Cells into Peripheral Vein, Percutaneous Approach (ICD-10-PCS; 2022-11-28)
PROC: 05HP33Z Insertion of Infusion Device into Right External Jugular Vein, Percutaneous Approach (ICD-10-PCS; 2022-11-29)
PROC: B543ZZA Ultrasonography of Right Jugular Veins, Guidance (ICD-10-PCS; 2022-11-29)
PROC: 0HBLXZX Excision of Left Lower Leg Skin, External Approach, Diagnostic (ICD-10-PCS; 2022-11-29)
PROC: 03180ZF Bypass Left Brachial Artery to Lower Arm Vein, Open Approach (ICD-10-PCS; principal; 2022-12-06 15:00)
PROC: 05HY33Z Insertion of Infusion Device into Upper Vein, Percutaneous Approach (ICD-10-PCS; 2022-12-06 15:00)
PROC: 5A1D70Z Performance of Urinary Filtration, Intermittent, Less than 6 Hours Per Day (ICD-10-PCS; 2022-12-10)
DX: L28.1 Prurigo nodularis (principal); N18.6 End stage renal disease; N39.0 Urinary tract infection, site not specified; N17.9 Acute kidney failure, unspecified; L03.90 Cellulitis, unspecified; I31.39 Other pericardial effusion (noninflammatory); I13.0 Hypertensive heart and chronic kidney disease with heart failure and stage 1 through stage 4 chronic kidney disease, or unspecified chronic kidney disease; Z16.12 Extended spectrum beta lactamase (ESBL) resistance; L29.8 Other pruritus; R21 Rash and other nonspecific skin eruption; R30.0 Dysuria; D63.1 Anemia in chronic kidney disease; E11.649 Type 2 diabetes mellitus with hypoglycemia without coma; N32.0 Bladder-neck obstruction; B96.20 Unspecified Escherichia coli [E. coli] as the cause of diseases classified elsewhere; Z99.2 Dependence on renal dialysis; E66.9 Obesity, unspecified; Z68.38 Body mass index [BMI] 38.0-38.9, adult; E87.5 Hyperkalemia; E78.5 Hyperlipidemia, unspecified; E03.9 Hypothyroidism, unspecified
CPT/HCPCS: 36415; 36430; 71045-TC-FY; 71250-TC; 74176-TC; 76000-TC-FY; 76775-TC; 80048; 80053; 81003; 82140; 82172; 82310; 82962; 82977; 83010; 83735; 83883; 83970; 84100; 84153; 84311; 84460; 85025; 85027; 85610; 86038; 86431; 86480; 86704; 86803; 86850; 86900; 86901; 86922; 87040; 87086; 87186; 87340; 87517; 88305-TC; 93005; 93010; 93306-TC; 93986; 94640; 94760; 97116-GP; 97161-GP; 99285-25; C1750; C9803-CS; J1644; P9058; Q5106; U0003; U0005

== ENCOUNTER 2023-02-23 08:13 | Inpatient (IN) | payer OTHER ==
[2023-02-23 10:43] LABS: BASO % 0.9 % (0-2.0); EOS % 4.4 % (0-4.5); HEMOGLOBIN 10.2 GM/dL (11.7-16.9); LYMPH % 9.8 % (8-40); MCH 27.1 pg (25.7-33.7); MCHC 31.8 g/dl (32.0-35.9); MEAN CELL VOLUME 85.2 fl (80-96); MEAN PLT VOLUME 8.3 fl (7.5-11.1); MONO % 7.3 % (3.8-10.2); NEUT % 77.6 % (42.8-82.8); PLATELET COUNT 312 10^3/uL (134-434); RBC 3.76 M/mm3 (4.00-5.60); RDW 16.6 % (11.9-15.9); WHITE BLOOD COUNT 13.8 K/mm3 (4.0-10.0)
[2023-02-23 11:01] LABS: CALCIUM 8.3 mg/dL (8.5-10.1)
[2023-02-23 11:02] LABS: ALBUMIN 3.2 g/dl (3.4-5.0)
[2023-02-23 11:06] LABS: CREATININE 4.8 mg/dL (0.55-1.3)
[2023-02-23 11:07] LABS: BILIRUBIN,TOTAL 0.4 mg/dL (0.2-1); PHOSPHOROUS 4.2 mg/dL (2.5-4.9); TOT PROT 6.3 g/dl (6.4-8.2)
[2023-02-23 12:12] LABS: URINE COLOR RED
[2023-02-23 12:13] LABS: URINE APPEARANCE BLOODY; URINE BILIRUBIN NEGATIVE (NEGATIVE); URINE GLUCOSE (UA) NEGATIVE (NEGATIVE); URINE PROTEIN 3+ (NEGATIVE); URINE UROBILINOGEN 0.2 mg/dL (0.2-1.0)
[2023-02-23 12:15] LABS: EPI CELLS 1.9 /uL (0-25.1); HYALINE CASTS 149 /uL (0-3.1); URINE BACTERIA 106 /uL (0-1359); URINE RBC 17539 /uL (0-23.9); URINE WBC 368 /uL (0-25.8)
[2023-02-23] MEDS ORDERED: SODIUM CHLORIDE 250 ML IV PRN (14:06)
[2023-02-23] MEDS: ERTAPENEM SODIUM 0.5 GM in SODIUM CHLORIDE 50 ML IVPB SCH (20:01)
[2023-02-23 21:25] LABS: HEPATITIS B SURFACE AG CONFIRM CONFIRMED (NONREACTIVE)
[2023-02-23] MEDS ORDERED: ACETAMINOPHEN 325 MG TABLET (FP) ONE (22:51)
[2023-02-23] MEDS ORDERED: hydrOXYzine PAMOATE 50 MG CAPSULE (FP) ONE (22:51)
[2023-02-23] MEDS ORDERED: ATORVASTATIN CA 10 MG TABLET (FP) ONE (22:51)
[2023-02-23] MEDS: ATORVASTATIN CA 10 MG TABLET (FP) PO SCH (22:54)
[2023-02-23] MEDS: hydrOXYzine PAMOATE 25 MG CAPSULE (FP) PO SCH (22:54)
[2023-02-23] MEDS: ACETAMINOPHEN 325 MG TABLET (FP) PO PRN (22:54)
[2023-02-23] MEDS: INSULIN (LEVEMIR) 100 UNITS/ML UNITS SQ SCH (23:50)
[2023-02-24] MEDS ORDERED: ACETAMINOPHEN 325 MG TABLET (FP) ONE (05:09)
[2023-02-24] MEDS: ACETAMINOPHEN 325 MG TABLET (FP) PO PRN ×2 (05:12→23:13)
[2023-02-24] MEDS ORDERED: sitaGLIPtin PHOSPHATE 50 MG TABLET ONE (06:45)
[2023-02-24] MEDS ORDERED: LEVOTHYROXINE NA 50 MCG TABLET (FP) ONE (06:45)
[2023-02-24] MEDS ORDERED: LEVOTHYROXINE NA 75 MCG TABLET (FP) ONE (06:45)
[2023-02-24] MEDS: LEVOTHYROXINE NA 125 MCG TABLET (FP) PO SCH (06:48)
[2023-02-24] MEDS: INSULIN SLIDING SCALE (NOVOLOG) 1 VIAL SQ SCH ×3 (08:08→17:16)
[2023-02-24] MEDS ORDERED: ALBUTEROL SO4 2.5/IPRATROPIUM 0.5 INH SOL 3 ML VIAL.NEB. NEB PRN (08:17)
[2023-02-24] MEDS ORDERED: hydrOXYzine PAMOATE 25 MG CAPSULE (FP) PO ONE (09:13)
[2023-02-24] MEDS ORDERED: LOSARTAN POTASSIUM 50 MG TABLET ONE (09:13)
[2023-02-24] MEDS: LACTOBACILLUS ACIDOPHILUS 1 TABLET PO SCH (09:23)
[2023-02-24] MEDS: LOSARTAN POTASSIUM 50 MG TABLET PO SCH (09:23)
[2023-02-24] MEDS: hydrOXYzine PAMOATE 25 MG CAPSULE (FP) PO SCH ×2 (09:23→23:14)
[2023-02-24 10:28] LABS: BASO % 1.1 % (0-2.0); EOS % 5.4 % (0-4.5); HEMATOCRIT 33.3 % (35.4-49); HEMOGLOBIN 10.6 GM/dL (11.7-16.9); LYMPH % 8.6 % (8-40); MCHC 31.9 g/dl (32.0-35.9); MEAN CELL VOLUME 84.7 fl (80-96); MEAN PLT VOLUME 8.1 fl (7.5-11.1); MONO % 7.3 % (3.8-10.2); NEUT % 77.6 % (42.8-82.8); PLATELET COUNT 300 10^3/uL (134-434); RBC 3.93 M/mm3 (4.00-5.60); WHITE BLOOD COUNT 10.7 K/mm3 (4.0-10.0)
[2023-02-24 10:44] LABS: CALCIUM 8.7 mg/dL (8.5-10.1)
[2023-02-24 10:45] LABS: BLOOD UREA NITROGEN 31.5 mg/dL (7-18); MAGNESIUM 1.9 mg/dL (1.8-2.4)
[2023-02-24] MEDS: ERTAPENEM SODIUM 0.5 GM in SODIUM CHLORIDE 50 ML IVPB SCH (10:45)
[2023-02-24] MEDS: FINASTERIDE 5 MG TABLET (FP) PO SCH (10:45)
[2023-02-24 10:47] LABS: CREATININE 4.1 mg/dL (0.55-1.3)
[2023-02-24] MEDS: ATORVASTATIN CA 10 MG TABLET (FP) PO SCH (23:14)
[2023-02-24] MEDS: INSULIN (LEVEMIR) 100 UNITS/ML UNITS SQ SCH (23:14)
[2023-02-25] MEDS: LEVOTHYROXINE NA 125 MCG TABLET (FP) PO SCH (06:41)
[2023-02-25] MEDS: INSULIN SLIDING SCALE (NOVOLOG) 1 VIAL SQ SCH ×3 (06:41→16:57)
[2023-02-25 09:09] LABS: BASO % 0.9 % (0-2.0); EOS % 7.2 % (0-4.5); HEMATOCRIT 28.1 % (35.4-49); HEMOGLOBIN 9.3 GM/dL (11.7-16.9); LYMPH % 8.1 % (8-40); MCH 27.9 pg (25.7-33.7); MEAN CELL VOLUME 84.3 fl (80-96); MEAN PLT VOLUME 8.6 fl (7.5-11.1); NEUT % 74.8 % (42.8-82.8); PLATELET COUNT 235 10^3/uL (134-434); RBC 3.33 M/mm3 (4.00-5.60); RDW 16.9 % (11.9-15.9); WHITE BLOOD COUNT 10.5 K/mm3 (4.0-10.0)
[2023-02-25 09:25] LABS: BLOOD UREA NITROGEN 42.3 mg/dL (7-18)
[2023-02-25 09:27] LABS: MAGNESIUM 1.9 mg/dL (1.8-2.4)
[2023-02-25] MEDS ORDERED: DEXTROSE 50%-WATER - 25 GM/50 ML VIAL IVPUSH PRN (09:27)
[2023-02-25 09:29] LABS: CREATININE 5.2 mg/dL (0.55-1.3); PHOSPHOROUS 4.5 mg/dL (2.5-4.9)
[2023-02-25] MEDS: ERTAPENEM SODIUM 0.5 GM in SODIUM CHLORIDE 50 ML IVPB SCH (11:06)
[2023-02-25] MEDS: LOSARTAN POTASSIUM 50 MG TABLET PO SCH (11:49)
[2023-02-25] MEDS: FINASTERIDE 5 MG TABLET (FP) PO SCH (11:49)
[2023-02-25] MEDS: LACTOBACILLUS ACIDOPHILUS 1 TABLET PO SCH (11:49)
[2023-02-25] MEDS: hydrOXYzine PAMOATE 25 MG CAPSULE (FP) PO SCH ×2 (11:49→22:54)
[2023-02-25] MEDS ORDERED: ALBUTEROL SO4 HFA INHALER IH PRN (15:23)
[2023-02-25] MEDS ORDERED: INSULIN (NOVOLOG) ASPART 100 UNITS/ML 10ML VIAL ONE (21:05)
[2023-02-25] MEDS: INSULIN (LEVEMIR) 100 UNITS/ML UNITS SQ SCH (22:52)
[2023-02-25] MEDS: ACETAMINOPHEN 325 MG TABLET (FP) PO PRN (22:53)
[2023-02-25] MEDS: ATORVASTATIN CA 10 MG TABLET (FP) PO SCH (22:55)
[2023-02-26] MEDS: INSULIN SLIDING SCALE (NOVOLOG) 1 VIAL SQ SCH ×3 (06:08→16:23)
[2023-02-26] MEDS: LEVOTHYROXINE NA 125 MCG TABLET (FP) PO SCH (06:09)
[2023-02-26 10:15] LABS: HEMATOCRIT 28.7 % (35.4-49); HEMOGLOBIN 9.2 GM/dL (11.7-16.9); MEAN CELL VOLUME 84.3 fl (80-96); MEAN PLT VOLUME 8.3 fl (7.5-11.1); PLATELET COUNT 224 10^3/uL (134-434); RBC 3.41 M/mm3 (4.00-5.60); RDW 16.8 % (11.9-15.9); WHITE BLOOD COUNT 11.5 K/mm3 (4.0-10.0)
[2023-02-26 10:33] LABS: ALBUMIN 2.7 g/dl (3.4-5.0); BLOOD UREA NITROGEN 48.7 mg/dL (7-18)
[2023-02-26 10:36] LABS: PHOSPHOROUS 5.1 mg/dL (2.5-4.9)
[2023-02-26 10:37] LABS: CREATININE 6.1 mg/dL (0.55-1.3)
[2023-02-26 10:39] LABS: BILIRUBIN,TOTAL 0.5 mg/dL (0.2-1); TOT PROT 5.6 g/dl (6.4-8.2)
[2023-02-26] MEDS: ERTAPENEM SODIUM 0.5 GM in SODIUM CHLORIDE 50 ML IVPB SCH (14:33)
[2023-02-26] MEDS: hydrOXYzine PAMOATE 25 MG CAPSULE (FP) PO SCH ×2 (14:37→22:58)
[2023-02-26] MEDS: LACTOBACILLUS ACIDOPHILUS 1 TABLET PO SCH (14:37)
[2023-02-26] MEDS: LOSARTAN POTASSIUM 50 MG TABLET PO SCH (14:37)
[2023-02-26] MEDS: FINASTERIDE 5 MG TABLET (FP) PO SCH (14:38)
[2023-02-26 18:30] VITALS: BMI 33.3
[2023-02-26] MEDS: ACETAMINOPHEN 325 MG TABLET (FP) PO PRN (22:58)
[2023-02-26] MEDS: ATORVASTATIN CA 10 MG TABLET (FP) PO SCH (22:58)
[2023-02-26] MEDS: INSULIN (LEVEMIR) 100 UNITS/ML UNITS SQ SCH (22:59)
[2023-02-27] MEDS: INSULIN SLIDING SCALE (NOVOLOG) 1 VIAL SQ SCH ×3 (06:32→16:37)
[2023-02-27] MEDS: LEVOTHYROXINE NA 125 MCG TABLET (FP) PO SCH (06:32)
[2023-02-27 07:47] LABS: BASO % 0.9 % (0-2.0); EOS % 11.8 % (0-4.5); HEMATOCRIT 29.2 % (35.4-49); HEMOGLOBIN 9.6 GM/dL (11.7-16.9); LYMPH % 10.7 % (8-40); MCH 27.4 pg (25.7-33.7); MCHC 32.8 g/dl (32.0-35.9); MEAN CELL VOLUME 83.6 fl (80-96); MEAN PLT VOLUME 8.6 fl (7.5-11.1); MONO % 12.4 % (3.8-10.2); NEUT % 64.2 % (42.8-82.8); PLATELET COUNT 213 10^3/uL (134-434); RBC 3.49 M/mm3 (4.00-5.60); RDW 16.4 % (11.9-15.9); WHITE BLOOD COUNT 8.6 K/mm3 (4.0-10.0)
[2023-02-27 08:55] LABS: ALBUMIN 2.7 g/dl (3.4-5.0); BLOOD UREA NITROGEN 25.9 mg/dL (7-18); CALCIUM 8.1 mg/dL (8.5-10.1)
[2023-02-27 08:56] LABS: MAGNESIUM 1.8 mg/dL (1.8-2.4)
[2023-02-27 08:58] LABS: CREATININE 4.1 mg/dL (0.55-1.3); PHOSPHOROUS 3.9 mg/dL (2.5-4.9)
[2023-02-27 09:00] LABS: BILIRUBIN,TOTAL 0.5 mg/dL (0.2-1); TOT PROT 5.7 g/dl (6.4-8.2)
[2023-02-27] MEDS: ERTAPENEM SODIUM 0.5 GM in SODIUM CHLORIDE 50 ML IVPB SCH (09:36)
[2023-02-27] MEDS: LACTOBACILLUS ACIDOPHILUS 1 TABLET PO SCH (09:38)
[2023-02-27] MEDS: hydrOXYzine PAMOATE 25 MG CAPSULE (FP) PO SCH ×2 (09:38→22:34)
[2023-02-27] MEDS: FINASTERIDE 5 MG TABLET (FP) PO SCH (09:38)
[2023-02-27] MEDS: LOSARTAN POTASSIUM 50 MG TABLET PO SCH (09:39)
[2023-02-27] MEDS: ACETAMINOPHEN 325 MG TABLET (FP) PO PRN ×2 (09:46→22:34)
[2023-02-27] MEDS: INSULIN (LEVEMIR) 100 UNITS/ML UNITS SQ SCH (22:34)
[2023-02-27] MEDS: ATORVASTATIN CA 10 MG TABLET (FP) PO SCH (22:34)
[2023-02-28] MEDS: LEVOTHYROXINE NA 125 MCG TABLET (FP) PO SCH (06:22)
[2023-02-28] MEDS: INSULIN SLIDING SCALE (NOVOLOG) 1 VIAL SQ SCH ×3 (06:22→16:40)
[2023-02-28 08:49] LABS: BASO % 1.1 % (0-2.0); EOS % 11.2 % (0-4.5); HEMATOCRIT 29.5 % (35.4-49); HEMOGLOBIN 9.6 GM/dL (11.7-16.9); LYMPH % 8.4 % (8-40); MCH 27.3 pg (25.7-33.7); MCHC 32.7 g/dl (32.0-35.9); MEAN CELL VOLUME 83.6 fl (80-96); MEAN PLT VOLUME 8.9 fl (7.5-11.1); MONO % 9.5 % (3.8-10.2); NEUT % 69.8 % (42.8-82.8); PLATELET COUNT 224 10^3/uL (134-434); RBC 3.53 M/mm3 (4.00-5.60); RDW 16.3 % (11.9-15.9); WHITE BLOOD COUNT 8.8 K/mm3 (4.0-10.0)
[2023-02-28] MEDS ORDERED: SODIUM CHLORIDE 250 ML IV PRN (08:52)
[2023-02-28 09:19] LABS: BLOOD UREA NITROGEN 35.8 mg/dL (7-18)
[2023-02-28 09:20] LABS: ALBUMIN 2.8 g/dl (3.4-5.0); PHOSPHOROUS 5.1 mg/dL (2.5-4.9)
[2023-02-28 09:21] LABS: BILIRUBIN,TOTAL 0.4 mg/dL (0.2-1); TOT PROT 5.9 g/dl (6.4-8.2)
[2023-02-28 09:22] LABS: CALCIUM 8.1 mg/dL (8.5-10.1); CREATININE 5.5 mg/dL (0.55-1.3); MAGNESIUM 1.9 mg/dL (1.8-2.4)
[2023-02-28] MEDS ORDERED: EPOETIN ALFA-EPBX 4,000 UNIT/ML VIAL IVPUSH ONE (10:00)
[2023-02-28] MEDS: hydrOXYzine PAMOATE 25 MG CAPSULE (FP) PO SCH ×2 (12:41→22:33)
[2023-02-28] MEDS: LACTOBACILLUS ACIDOPHILUS 1 TABLET PO SCH (12:42)
[2023-02-28] MEDS: LOSARTAN POTASSIUM 50 MG TABLET PO SCH (12:42)
[2023-02-28] MEDS: ERTAPENEM SODIUM 0.5 GM in SODIUM CHLORIDE 50 ML IVPB SCH (12:42)
[2023-02-28] MEDS: FINASTERIDE 5 MG TABLET (FP) PO SCH (12:42)
[2023-02-28] MEDS: ATORVASTATIN CA 10 MG TABLET (FP) PO SCH (22:33)
[2023-02-28] MEDS: INSULIN (LEVEMIR) 100 UNITS/ML UNITS SQ SCH ×2 (22:33→22:38)
[2023-02-28] MEDS: ACETAMINOPHEN 325 MG TABLET (FP) PO PRN (22:40)
[2023-03-01] MEDS: LEVOTHYROXINE NA 125 MCG TABLET (FP) PO SCH (06:32)
[2023-03-01] MEDS: INSULIN SLIDING SCALE (NOVOLOG) 1 VIAL SQ SCH ×3 (07:27→16:00)
[2023-03-01] MEDS: LOSARTAN POTASSIUM 50 MG TABLET PO SCH (09:46)
[2023-03-01] MEDS: LACTOBACILLUS ACIDOPHILUS 1 TABLET PO SCH (09:46)
[2023-03-01] MEDS: FINASTERIDE 5 MG TABLET (FP) PO SCH (09:47)
[2023-03-01] MEDS: ERTAPENEM SODIUM 0.5 GM in SODIUM CHLORIDE 50 ML IVPB SCH (09:47)
[2023-03-01] MEDS: hydrOXYzine PAMOATE 25 MG CAPSULE (FP) PO SCH (10:05)
[2023-03-01 14:53] VITALS: BP 158/69; PULSE 68; RESP 18; TEMP 98.3
== END 2023-03-01 16:15 | disposition home or self-care (01) | DRG 689 ==
LOC: JER 08:13 → JERBED 15:45 → J7W 02-24 15:49
PROVIDERS: ADMIT Internal Medicine
PROC: 5A1D70Z Performance of Urinary Filtration, Intermittent, Less than 6 Hours Per Day (ICD-10-PCS; principal; 2023-02-28)
DX: N39.0 Urinary tract infection, site not specified (principal); N18.6 End stage renal disease; I12.0 Hypertensive chronic kidney disease with stage 5 chronic kidney disease or end stage renal disease; Z16.12 Extended spectrum beta lactamase (ESBL) resistance; R31.0 Gross hematuria; E03.9 Hypothyroidism, unspecified; E11.22 Type 2 diabetes mellitus with diabetic chronic kidney disease; E78.5 Hyperlipidemia, unspecified; E11.42 Type 2 diabetes mellitus with diabetic polyneuropathy; J44.9 Chronic obstructive pulmonary disease, unspecified; D64.9 Anemia, unspecified; B96.20 Unspecified Escherichia coli [E. coli] as the cause of diseases classified elsewhere; Z99.2 Dependence on renal dialysis; D72.829 Elevated white blood cell count, unspecified
CPT/HCPCS: 36415; 71045-TC-FY; 74177-TC; 80048; 80053; 81003; 82962; 83735; 84100; 85025; 85027; 86803; 87086; 87186; 87340; 93005; 93010; 97116-GP; 97161-GP; 99285-25; C9803-CS; Q5106; Q9967; U0003; U0005